=== PATIENT | female | born 1950 | race Caucasian/White ===

== ENCOUNTER 2019-02-01 12:58 | Day surgery (SDC) | payer OTHER ==
[~2019-02-01] VITALS: Ht 162.6 cm; Wt 102.5 kg
[~2019-02-01 12:58] MED LIST: ALBU90OI61 INH; Calcium + Vita1 EACH PO; DILTIAZEM 24HR240 M1 PO; ELIQUIS5 MG PO; LETR2.5 PO; Pravachol40 MG PO; Ranitidine HCl150 M1 PO; TRAM50 PO; VITAMIN D32000 UNIT PO; ZOLEDRONIC4 MG/100 M IV
== END 2019-02-01 15:34 | disposition home or self-care (01) ==
LOC: ORSCSDS 12:58
PROVIDERS: Student in an Organized Health Care Education/Training Program
PROC: 0DJD8ZZ Inspection of Lower Intestinal Tract, Via Natural or Artificial Opening Endoscopic (ICD-10-PCS; principal; 2019-02-01 14:30)
DX: Z12.11 Encounter for screening for malignant neoplasm of colon (principal); K57.30 Diverticulosis of large intestine without perforation or abscess without bleeding; I48.91 Unspecified atrial fibrillation; G47.33 Obstructive sleep apnea (adult) (pediatric); I10 Essential (primary) hypertension; Z87.891 Personal history of nicotine dependence; E66.01 Morbid (severe) obesity due to excess calories; Z68.38 Body mass index [BMI] 38.0-38.9, adult; Z79.01 Long term (current) use of anticoagulants; Z79.899 Other long term (current) drug therapy
CPT/HCPCS: J2405; J7120

== ENCOUNTER 2025-10-13 04:07 | Observation (INO) | payer OTHER ==
[~2025-10-13] VITALS: Ht 162.6 cm; Wt 84.4 kg
[2025-10-13] VITALS (12 sets, daily range): BP systolic 111–150; BP diastolic 49–100
[~2025-10-13 04:07] MED LIST changes: +CALCIUM 500-VI1 EAC4 PO; -Calcium + Vita1 EACH PO; +DOCUZEN 8.6-501 EACH PO; +EUTHYROX25 MC1 PO; +OXYC10ER PO; +OXYC5 PO; -Pravachol40 MG PO; +Pravastatin Sod40 MG PO
[2025-10-13] MEDS ORDERED: Albuterol 2.5 MG/3 ML VIAL INH SCH (04:15)
[2025-10-13] MEDS ORDERED: Magnesium Sulf 2 GM/Water 50ML 50 ML IV ONE (04:15)
[2025-10-13 04:32] LABS: pH Blood Venous 7.43 (7.34-7.37)
[2025-10-13 04:36] LABS: BASOPHILS ABSOLUTE AUTO 0.02 K/mm3 (0.00-0.23); BASOPHILS PERCENT AUTO 0 % (0-2); EOSINOPHILS ABSOLUTE AUTO 0.00 K/mm3 (0.00-0.68); EOSINOPHILS PERCENT AUTO 0 % (0-6); Hematocrit 37.6 % (33.0-51.0); Hemoglobin 13.0 g/dL (11.5-16.0); IMMATURE GRAN ABSOLUTE AUTO 0.04 K/mm3 (0.00-0.10); IMMATURE GRAN PERCENT AUTO 0 % (0-1); LYMPHOCYTES ABSOLUTE AUTO 1.41 K/mm3 (0.84-5.20); LYMPHOCYTES PERCENT AUTO 11 % (21-46); MONOCYTES ABSOLUTE AUTO 0.80 K/mm3 (0.16-1.47); MONOCYTES PERCENT AUTO 6 % (4-13); Mean Corpuscular HGB Conc 34.6 g/dL (31.5-36.5); Mean Corpuscular Volume 95 fL (80-100); NEUTROPHILS ABSOLUTE AUTO 10.75 K/mm3 (1.96-9.15); NEUTROPHILS PERCENT AUTO 83 % (41-73); NRBC ABSOLUTE 0.00 K/mm3 (0.00-0.02); NRBC Auto 0.0 /100 WBC (0.0-0.2); Platelet Count 188 K/mm3 (150-400); RDW Coefficient Variation 12.6 % (11.7-14.2); RDW Standard Deviation 44.3 fL (35.1-46.3)
[2025-10-13 04:55] LABS: Alanine Aminotransfer (ALT/SGP 27.0 U/L (12-78); Albumin, Blood 3.4 g/dL (3.4-5.0); Albumin/Globulin Ratio 1.0 (0.8-1.8); Anion Gap 12.0 mmol/L (3-11); Aspartate Aminotrans (AST/SGOT 35.0 U/L (12-37); Bilirubin, Total 1.3 mg/dL (0.1-1.0); Blood Urea Nitrogen 21.0 mg/dL (8-24); CO2, Blood 23.0 mmol/L (21-32); Calcium, Blood 9.3 mg/dL (8.5-10.1); Chloride, Blood 107.0 mmol/L (98-108); Creatinine, Blood 0.79 mg/dL (0.40-1.00); Globulin, Blood 3.3 g/dL (2.2-4.0); Glucose, Blood 138.0 mg/dL (70-99); Potassium, Blood 4.3 mmol/L (3.5-5.5); Sodium, Blood 138.0 mmol/L (136-145); Total Protein, Blood 6.7 g/dL (6.4-8.2)
[2025-10-13 05:10] LABS: Influenza A, PCR NEGATIVE (NEGATIVE); Influenza B, PCR NEGATIVE (NEGATIVE); Resp Syncytial Virus, PCR NEGATIVE (NEGATIVE); SARS-Cov-2 (COVID-19) PCR, MMC NEGATIVE (NEGATIVE)
[2025-10-13] MEDS ORDERED: AMOCLA875 PO (05:19)
[2025-10-13] MEDS ORDERED: ALBU90OI INH (05:19)
[2025-10-13] MEDS ORDERED: Lidocaine 2% Viscous Soln 15 ML UDC PO ONE (05:55)
[2025-10-13] MEDS ORDERED: NS 1,000 ML IV SCH (08:45)
--- NOTE | 2025-10-13 10:14 | NUR ---
Patient states she swallowed an oral device friday and she waited to come in until now because she was "getting worse". Last known liquid was friday morning when she tried to swallow pills. Last known meal was friday night, along with her medication on friday.
[2025-10-13] MEDS ORDERED: Ondansetron HCl 2 MG / ML 2ML Vial IV PRN ×2 (10:25→14:25)
[2025-10-13] MEDS ORDERED: FLU VACC TS2025(65UP)/MF59C/PF 45 MCG/0.5 ML SYRINGE IM SCH (10:25)
--- NOTE | 2025-10-13 13:00 | NUR ---
Up to commode with SBA. 100ml clear/yellow. 4l NC, able to answer questions appropriately.
[2025-10-13] MEDS ORDERED: Ketamine HCl 100 MG / ML 5ML Vial ONE (13:57)
[2025-10-13] MEDS ORDERED: SuccINYLCHOLINE Chloride 100 MG/5 ML 5MLSYR ONE (14:13)
[2025-10-13] MEDS ORDERED: Metoclopramide HCl 5MG / ML 2ML Vial ONE (14:14)
--- NOTE | 2025-10-13 14:14 | NUR ---
10/13/25 1414 Lali Nathan INTO OR 2 FOR FOREIGN BODY REMOVAL-SEE ANESTHESIA RECORD.
[2025-10-13] MEDS ORDERED: ePHEDrine Sulfate 50 MG/ML 1ML Injection IV PRN (14:25)
[2025-10-13] MEDS ORDERED: Albuterol 2.5 MG/3 ML VIAL INH PRN (14:25)
[2025-10-13] MEDS ORDERED: HYDROmorphone HCl/Pf 1MG SYR IV PRN (14:25)
[2025-10-13] MEDS ORDERED: FentaNYL Citrate 50 MCG/ML 2 ML Injection IV PRN ×2 (14:25→14:30)
[2025-10-13] MEDS ORDERED: Morphine Sulfate 4 MG/1 ML Injection IV PRN (14:25)
[2025-10-13] MEDS ORDERED: Ipratropium/Albuterol SulF 2.5-0.5MG/3 ML Amp ONE (14:32)
--- NOTE | 2025-10-13 16:00 | NUR ---
PT ARRIVED FROM OR, VIA STRETCHER. AWAKE, COHERENT, WITH ONGOING BREATHING TREATMENT AND IV LINE ON RIGHT AC WITH HOOKED PLR 1LR. PT TRANSFERRED TO BED IN PCU13 VIA 5 PERSON TRANSFER WITH THE USE OF SLIDING MAT. PT WAS ORIENTED TO PCU EQUIPMENT AND CALL LIGHT. ORIENTED TO HOURLY ROUNDING AND ENCOURAGED TO USE THE CALL LIGHT. PT ACKNOWLEDGED. PT THEN HOOKED TO O2 VIA NASAL CANNULA @ 2LPM. SATS >90%. PT ASKED IF SHE CAN SLEEP AND WOULD ANSWER OTHER QUESTIONS ONCE RESTED. WILL REPORT TO ONCOMING SHIFT.
[2025-10-13] MEDS ORDERED: Albuterol HFA200 ACT/6.7 GM INH INH PRN (16:35)
[2025-10-13] MEDS ORDERED: Docusate Sodium/Senna 1 Tab PO SCH (21:00)
[2025-10-14 03:43] VITALS: BP 107/64
--- NOTE | 2025-10-14 06:15 | NUR ---
SHIFT SUMMARY PATIENT ALERT AND ORIENTED X4. HAD NO COMPLAINTS OF PAIN OR SHORTNESS OF BREATH. TOLERATED SWALLOWING ALL FLUID INTAKE AND MEDICATIONS WITHOUT SIGNS OF ASPIRATION. ON ROOM AIR WHILE AWAKE AND CPAP FOR SLEEP. PATIENT EDUCATED ON THE IMPORTANCE OF NOT WEARING HER RETAINER WHILE WEARING HER CPAP. VITAL SIGNS STABLE. NO ACUTE ISSUES NOTED OVERNIGHT. WILL CONTINUE TO [facility]. CALL LIGHT WITHIN REACH.
[2025-10-14 07:28] VITALS: BP 145/57
[2025-10-14] MEDS ORDERED: Calcium 500 MG/Vit D 200 Units Tab PO SCH (09:00)
[2025-10-14] MEDS ORDERED: Cholecalciferol 1000 Unit Tablet (=25MCG) PO SCH (09:00)
[2025-10-14] MEDS ORDERED: Enoxaparin 40 MG/0.4 ML SYR SC SCH (09:00)
[2025-10-14 11:00] VITALS: BP 119/53
--- NOTE | 2025-10-14 13:12 | NUR ---
PATIENT DISCHARGE SUMMARY: PT HAS BEEN COOPERATIVE. DENIES ANY SHORTNESS OF BREATH. PT WAS SEEN BY DR FUNES AND WAS SCHEDULED FOR DISCHARGE. DISCHARGE ORDERS WERE PROCESSED AND ASKED PATIENT IF SOMEONE CAN DRIVE HER HOME. REMINDED PATIENT NOT TO WEAR HER RETAINERS WHILE ON CPAP AND PROVIDED WITH THE LIST OF HOME MEDICATIONS. PT WAS PICKED UP BY HER FRIEND AND WAS ASSISTED BY THE [employer] SERVICE TECHNICIAN ON DUTY TO CAR VIA WHEELCHAIR.
== END 2025-10-14 12:20 | disposition home or self-care (01) ==
LOC: ER 04:07 → PCU 04:08
PROVIDERS: Emergency Medicine; Internal Medicine Gastroenterology; ADMIT Internal Medicine
PROC: 0CCM8ZZ Extirpation of Matter from Pharynx, Via Natural or Artificial Opening Endoscopic (ICD-10-PCS; principal; 2025-10-13 10:00)
PROC: 0DB68ZX Excision of Stomach, Via Natural or Artificial Opening Endoscopic, Diagnostic (ICD-10-PCS; principal; 2025-10-13 10:00)
DX: T18.198A Other foreign object in esophagus causing other injury, initial encounter (principal); W44.8XXA Other foreign body entering into or through a natural orifice, initial encounter; K29.70 Gastritis, unspecified, without bleeding; E03.9 Hypothyroidism, unspecified; E78.5 Hyperlipidemia, unspecified; G47.33 Obstructive sleep apnea (adult) (pediatric); I48.20 Chronic atrial fibrillation, unspecified; Z88.8 Allergy status to other drugs, medicaments and biological substances; Z91.040 Latex allergy status
CPT/HCPCS: 36415; 70360; 71045; 80053; 82803; 83605; 83880; 84484; 85025; 87637; 88305; 88342; 93005; 93010; 94644; 94660; 94664; 94762; 96365; 96375; 99285-25; A9270; J0330; J2704; J2765; J2919; J7030; J7120

== ENCOUNTER → 2025-10-31 | Outpatient (CLI) | payer OTHER ==
[~2025-10-31] MED LIST changes: +ALBU90OI INH; +AMOCLA875 PO
[2025-11-02 13:02] LABS: Stool Occult Bld Immuno 1 Negative (NEGATIVE)
== END ==
LOC: LAB 14:58 → LAB SHORT 14:58
PROVIDERS: Family Medicine
DX: R63.4 Abnormal weight loss (principal); Z12.11 Encounter for screening for malignant neoplasm of colon; R79.9 Abnormal finding of blood chemistry, unspecified; D51.0 Vitamin B12 deficiency anemia due to intrinsic factor deficiency
CPT/HCPCS: G0328